=== PATIENT | female | born 1985 | race Caucasian/White ===

== ENCOUNTER 2021-08-15 17:40 | Emergency (ER) | payer OTHER, SELFPAY ==
--- NOTE | 2021-08-15 17:41 | ED.NECK ---
HPI - Neck Pain/Injury General Chief Complaint: Neck Pain/Injury Stated Complaint: Neck Pain Time Seen by Provider: 08/15/21 17:45 Source: patient and RN notes reviewed History of Present Illness HPI Narrative: Patient is a 35-year-old female who presents the urgent care with complaints of right sided neck pain. Patient states that she woke up with a stiff neck today and was unable to go to work due to the radiation down to the right shoulder. Patient states that she has been using ice, rest, movement and Tylenol without any resolution. Patient denies of any headache or changes in vision. Denies of any known trauma or injury to the neck. No other acute complaints. No acute distress noted. Patient aware of the plan of care. Some parts of this dictation were generated by voice recognition software and may contain typographical and/or grammatical inaccuracies. Related Data Home Medications Medication Instructions Recorded Confirmed amitriptyline 75 mg PO HS 08/15/21 08/15/21 levothyroxine 50 mcg PO DAILY 08/15/21 08/15/21 methylphenidate HCl 10 mg PO DAILY 08/15/21 08/15/21 pantoprazole [Protonix] 40 mg PO HS 08/15/21 08/15/21 Allergies Allergy/AdvReac Type Severity Reaction Status Date / Time No Known Allergies Allergy Verified 08/15/21 18:00 Review of Systems Review of Systems: CONSTITUTIONAL: Denies fever, chills, or sweats. EYES: Denies visual changes, redness, or discharge. ENT: Denies rhinorrhea, congestion, sore throat, or otalgia. CARDIOVASCULAR: Denies chest pain, palpitations, or edema. RESPIRATORY: Denies cough or dyspnea. GASTROINTESTINAL: Denies abdominal pain, nausea, vomiting, or diarrhea. GENITOURINARY: Denies dysuria or hematuria. SKIN: Denies rash or itching. MUSCULOSKELETAL: Reports of right-sided neck pain. Denies back pain, joint pain, or myalgia. NEUROLOGIC: Denies headache, numbness, or weakness. All other systems reviewed are negative, except as documented in HPI. PMFSH Comments At the time of my signature, I reviewed and agree with the nursing past medical, surgical, social, and family history. There is no relevant family history pertinent to the patient complaint. Exam Narrative: GENERAL: This is a well-nourished, well-developed patient, in no apparent distress. HEAD: normocephalic, atraumatic. EYES: PERRL. Sclera clear/white. Vision is grossly intact. EARS: External ears normal NOSE: External nose normal with no obvious nasal discharge, nares without redness, no rhinorrhea. THROAT: Mucous membranes moist NECK: Chin tuck, had left and flexion to the left within normal limits. Difficulty with right flexion. Mild right cervical tenderness CARDIOVASCULAR: Regular rate and rhythm without murmurs, gallops, or rubs. RESPIRATORY: Clear to auscultation. Breath sounds equal bilaterally. No wheezes, rales, or rhonchi. SKIN: warm, intact with no suspicious lesions or rash, good texture and turgor. NEURO: awake, alert, and oriented to person, place and time. There were no obvious focal neurologic abnormalities. EXTREMITIES: No clubbing, cyanosis, or edema. Course Vital Signs Vital signs: Vital Signs Temperature 98.1 F 08/15/21 17:50 Pulse Rate 87 08/15/21 17:50 Respiratory Rate 16 08/15/21 17:50 Blood Pressure 136/83 08/15/21 17:50 Pulse Oximetry 100 08/15/21 17:50 Temperature 98.1 F 08/15/21 17:50 Pulse Rate 87 08/15/21 17:50 Respiratory Rate 16 08/15/21 17:50 Blood Pressure 136/83 08/15/21 17:50 Pulse Oximetry 100 08/15/21 17:50 Reviewed MDM - Neck Pain/Injury MDM Narrative Medical decision making narrative: Advised the patient to complete the steroid regimen as prescribed. Continue using Tylenol as needed for pain. Use the muscle relaxer as needed prior to bedtime. The muscle relaxer will make you drowsy and therefore avoid operating heavy machinery or working while on the medication. May use the medication 3 times a day if you were going to be a
[2021-08-15 17:50] VITALS: BP 136/83; PULSE 87; RESP 16; TEMP 36.7; O2SAT 100
== END 2021-08-15 18:08 | disposition home or self-care (01) ==
PROVIDERS: Emergency Provider Nurse Practitioner Family; PCP Family Medicine
DX: S16.1XXA Strain of muscle, fascia and tendon at neck level, initial encounter (principal); X58.XXXA Exposure to other specified factors, initial encounter; Z98.84 Bariatric surgery status; K21.9 Gastro-esophageal reflux disease without esophagitis; E03.9 Hypothyroidism, unspecified; F41.9 Anxiety disorder, unspecified
CPT/HCPCS: 99203; G0463

== ENCOUNTER 2025-10-23 17:29 | Emergency (ER) | payer OTHER, SELFPAY ==
--- OUTSIDE RECORDS SUMMARY | 2025-10-23 17:35 | XMS_ITS | Clinical Summary ---
Author Organization [facility] [address] Address [address] [place] [address] Care Team Providers Care Quality Lead Name Role Phone Zen Pierce MD Unavailable [phone] Marc Zambrano MANAGER MANAGING Unavailable [phone] Suzanne Scott MD Primary Care Provider Viji Hopkins MD Unavailable [phone] Allergies Active Allergy Reactions Criticality Noted Date Comments Shellfish Diarrhea,Vomiting Low 01/31/2024 Medications multivit-min/iron/ folic acid/K (BARIATRIC MULTIVITAMINS ORAL) Take by mouth Active iron bis-gly/FA/C/B12/C a/succ (IRON-150 ORAL) Take by mouth Active pantoprazole DR (PROTONIX) 40 mg EC tabletIndications: Gastroesophageal reflux disease without esophagitis TAKE 1 TABLET BY MOUTH EVERY DAY IN THE MORNING 90 tablet 08/27/20 25 Active levothyroxine (SYNTHROID) 50 mcg tabletIndications: Acquired hypothyroidism TAKE 1 TABLET BY MOUTH EVERY DAY 90 tablet 1 09/09/20 25 Active viloxazine 100 mg capsule,extended release 24hrIndications:At tention-Deficit Hyperactivity Disorder Take 2 capsules by mouth daily for 15 days, THEN 4 capsules daily for 15 days. 180 capsule 10/06/20 25 026 Active valACYclovir (VALTREX) 500 mg tabletIndications: Herpesviral infection, unspecified Take 1 tablet (500 mg total) by mouth daily 40 tablet 10/20/20 25 Active methylphenidate HCl (RITALIN) 10 mg tabletIndications: Attention-Deficit Hyperactivity Disorder Take 1 tablet in the morning and 1/2 tablet in the afternoon 45 tablet 06/18/20 25 025 Discontin ued(Thera py completed ) valACYclovir (VALTREX) 500 mg tabletIndications: Herpesviral infection, unspecified TAKE 1 TABLET (500 MG TOTAL) BY MOUTH DAILY. 40 tablet 07/28/20 25 025 Discontin ued(Reord er) atomoxetine (STRATTERA) 40 mg capsuleIndications :Attention-Deficit Hyperactivity Disorder Take 1 capsule (40 mg total) by mouth daily for 5 days, THEN 2 capsules (80 mg total) daily for 25 days. 55 capsule 08/25/20 25 025 Discontin ued(Thera py completed ) atomoxetine (STRATTERA) 80 mg capsule Take 1 capsule (80 mg total) by mouth daily 90 capsule 09/20/20 025 Discontin ued(Patie nt Reported) Active Problems Problem Noted Date Diagnosed Date Heart palpitations 07/01/2025 Overview (10/18/2025): [facility] Mobile Cardiac Telemetry Event Monitor 09/2025 CONCLUSIONS: 1. Predominant rhythm is normal sinus rhythm with a minimum heart rate of 62 beats per minute in sinus and a maximum heart rate of 151 beats per minute also in sinus. Average heart rate of 91 beats per minute. Heart rate was controlled 73% of the time and was rapid 27% of the time. Total monitoring time of 4 days 7 hours 41 minutes. 2. Heart rate and rate variability is appropriate. 3. No prolonged pauses. 4. Rare PACs with only 99 PACs corresponding to less than 1% of total beats. 5. Rare PVCs with only 33 PVCs corresponding to less than 1% of total beats. 6. There were 7 patient activated events with 4 of them associated with rapid/fast heartbeat. All noted to be in sinus rhythm ranging in heart rate from 77-122 beats per minute. Two of the rapid/fast heartbeat episodes were associated with an isolated PAC and a supraventricular couplet. Assessment & Plan (10/17/2025 6:40 PM SILO WORKER): Heart palpitations with tachycardia have improved significantly after discontinuation of Ritalin and reduction of caffeine intake. Improved significantly since initial presentation. She suspects symptoms are to be related to menstrual cycle. - ordered event monitor for two weeks to assess for arrhythmias if symptoms persist which she has completed and returned but results are still pending - She is not concerned about non-dangerous arrhythmias but is interested in resuming Ritalin if cardiac evaluation is favorable. - Await results of the event monitor to determine the nature of the arrhythmias. - Will communicate event monitor results to her once available. - Will discuss potential use of medication to manage symptoms if arrhythmias are non-dangerous but bothersome. ECG 08/2025 Vent Rate: 95 bpm RR Interval: 631 msec WV Interval: 162 msec QRS Duration: 82 msec QT Interval: 317 msec QTC Interval: 369 msec P-R-T [place]: 38 - 26 - 18 degrees IMPRESSION: SINUS RHYTHM WITH MARKED SINUS ARRHYTHMIA POSSIBLE ANTERIOR MYOCARDIAL INFARCTION , PROBABLY OLD [30 ms Q WAVE IN V3/V4, OR R < 0.2 mV IN V4] BORDERLINE ECG Compared to prior EKG heart rate decreased Assessment & Plan (08/25/2025 12:23 PM CDT): Heart palpitations and tachycardia Heart palpitations have improved significantly after reducing Ritalin and caffeine intake. Symptoms are not completely resolved and occur intermittently, possibly related to hormonal changes. EKG showed sinus arrhythmia, which is normal and not concerning. No evidence of myocardial infarction despite EKG findings suggesting possible Q waves. Discussed the possibility of PVCs, which are common and not typically dangerous unless frequent. - Order event monitor for two weeks to assess for arrhythmias if symptoms persist. - Schedule event monitor setup in three weeks to allow trial of Strattera. - Send event monitor results directly to provider. ECG 08/2025 Vent Rate: 95 bpm RR Interval: 631 msec WV Interval: 162 msec QRS Duration: 82 msec QT Interval: 317 msec QTC Interval: 369 msec P-R-T [place]: 38 - 26 - 18 degrees IMPRESSION: SINUS RHYTHM WITH MARKED SINUS ARRHYTHMIA POSSIBLE ANTERIOR MYOCARDIAL INFARCTION , PROBABLY OLD [30 ms Q WAVE IN V3/V4, OR R < 0.2 mV IN V4] BORDERLINE ECG Compared to prior EKG heart rate decreased Orders: [facility] Mobile Cardiac Telemetry Event Monitor; Future Assessment & Plan (07/01/2025 11:43 PM CDT): Intermittent palpitations and elevated pulse for over a week, with significant symptoms on Saturday. Symptoms improved after stopping melatonin. Similar symptoms occurred after stopping Z-Quil. No current chest pain, but occasional tightness. Regular heart rate and rhythm on examination. Differential includes stimulant effects from Ritalin and caffeine. Symptoms were worse at night, possibly due to lingering effects of caffeine. - Discontinue Ritalin for two weeks to assess symptom improvement. - Avoid caffeine to evaluate its impact on symptoms. - Monitor heart rate and blood pressure at home. - If symptoms worsen, order labs, heart monitor, and EKG. - Reassess after two weeks to determine if symptoms persist or improve. Vitamin D deficiency 01/27/2025 Assessment & Plan (01/27/2025 6:00 AM CDT): - new diagnosis Vitamin D levels are low, likely due to limited sun exposure and dietary intake. Common in patients with bariatric surgery. Multivitamin includes vitamin D but adherence is inconsistent. - Encourage regular intake of bariatric multivitamin containing vitamin D - Consider additional vitamin D supplementation if levels do not improve - not consistent in taking her bariatric multivitamin supplement which she will restart taking it consistently Lab Results Component Value Date 25HYDROVITD 22 (L) 01/14/2025 25HYDROVITD 30 08/14/2023 25HYDROVITD 34 06/26/2022 Irritable bowel syndrome with diarrhea Chronic left shoulder pain 02/05/2024 Assessment & Plan (02/05/2024 5:16 PM CDT): - chronic, reports been ongoing for years - no recent injury or trauma - reports injury about 3.5 years ago - obtain XR of left shoulder, order placed Plantar fasciitis of left foot 02/05/2024 Assessment & Plan (02/05/2024 5:18 PM CDT): - new complaint, states ongoing for 3 months - she googled about it and concerned about broken heel bone vs plantar fascitis - symptom is consistent with plantar fascitis, no prior injury or recent trauma - has known morbid obesity - recommend exercises plantar fascitis, patient tinstruction provided - obtain XR of left foot, order placed Sinus tachycardia 01/31/2024 Sleep disorder 01/17/2024 Overview (08/25/2025): Established with sleep medicine Assessment & Plan (08/12/2024 10:12 AM CDT): - she was established with sleep medicine in 2021 - Dr. Leach for RLS which resolved with treatment of her iron deficiency, she was also seen for insomnia - she no longer has RLS at this time, most recent labs as shown below - in 2019, she was diagnosed with periodic sleep movement disorder - however she needed to have sleep study first before treatment of insomnia which she never did - she still has trouble with sleep initiation, has been taking antihihistamines without success - recommend reaching out to sleep medicine on last visit regarding this as she also complaints of fatigue and has known obesity --> has not been done but plans to reach out again Lab Results Component Value Date WBC 4.0 02/01/2024 HGB 12.4 02/01/2024 HCT 36.7 02/01/2024 MCV 86.8 02/01/2024 LABPLAT 185 02/01/2024 Lab Results Component Value Date IRON 63 12/23/2023 TIBC 305 12/23/2023 FERRITIN 18 12/23/2023 Assessment & Plan (08/06/2024 9:50 AM CDT): - she was established with sleep medicine in 2021 - Dr. Leach for RLS which resolved with treatment of her iron deficiency, she was also seen for insomnia - in 2019, she was diagnosed with periodic sleep movement disorder - however she needed to have sleep study first before treatment of insomnia which she never did - she still has trouble with sleep initiation, has been taking antihihistamines without success - recommend reaching out to sleep medicine regarding this as she also complaints of fatigue and has known obesity Assessment & Plan (01/17/2024 5:54 AM CDT): - she was established with sleep medicine in 2021 - Dr. Leach for RLS which resolved with treatment of her iron deficiency, she was also seen for insomnia - in 2019, she was diagnosed with periodic sleep movement disorder - however she needed to have sleep study first before treatment of insomnia which she never did - she still has trouble with sleep initiation, has been taking antihihistamines without success - recommend reaching out to sleep medicine regarding this as she also complaints of fatigue and has known obesity Hypertriglyceridemia without hypercholesterolemi a 12/24/2023 Assessment & Plan (01/25/2025 12:26 PM CDT): - chronic, improved/at goal - has known obesity Body mass index is 49.19 kg/m . - currently trying to lose weight - currently managed via lifestyle only - recommend fish oil supplements - The current medical regimen is effective; continue present plan and medications. Lab Results Component Value Date TRIG 132 01/14/2025 TRIG 233 (H) 12/23/2023 TRIG 173 (H) 07/06/2021 Assessment & Plan (02/05/2024 5:15 PM CDT): - chronic, worse - has known obesity Body mass index is 48.02 kg/m . - currently trying to lose weight - currently managed via lifestyle only - recommend fish oil supplements - will continie to monitor Lab Results Component Value Date TRIG 233 (H) 12/23/2023 TRIG 173 (H) 07/06/2021 Encounter for evaluation regarding contraception options 10/10/2023 Assessment & Plan (10/29/2023 7:28 PM SILO WORKER): The patient is going to start on oral contraceptives today. Risks, benefits, and alternatives were reviewed including nausea, hypertension, and risk of DVT. Patient was asked to return to the office in 3 months for blood pressure check. We discussed that oral contraceptives will keep her from getting when taken correctly. Condom use was encouraged at all times, especially in the 1st pack. She can start her pills today but they may not be enough to keep her from having they next cycle, but the cycles should regulate. If she wants, she can wait and start with the first day of her next cycle. We discussed that the patient should take 1 pill a day. If she forgets to take her pills she should take it as soon as she remembers. We discussed that antibiotics will decrease the efficacy of oral contraceptives. If she takes antibiotics she needs to use condoms until she starts the new pack. It may take three cycles for the cycles to be noticeably different. The patient was encouraged to call with any questions. I will double check that ocp are the best option for her after her bariatric surgery as she prefers not to use patches or nuvaring. Well woman exam 10/10/2023 Overview (10/10/2023): Do you want to be in the next year?no Lab: Pap:following abnl pap currently Labs with pcp Litzy: Colonoscopy:2021 BMD: Gardasil:01/04 Assessment & Plan (10/10/2023 1:43 PM SILO WORKER): Pap done. RTO 12m. I will send the results to the portal. If she has not heard in a week, to call the office. Preventative health care 08/16/2023 Assessment & Plan (01/27/2025 6:01 AM CDT): - new/acute condition or chronic conditions that are worse: vitamin D deficiency, low iron, anxiety/depression, ADHD - Mental health: not at goal, see other a/p section - Dental health: Up to date with regular dental care and cleaning. Discussed importance of regular tooth brushing, flossing, and dental visits. - Nutrition: Stressed importance of moderation in sodium/caffeine intake, saturated fat and cholesterol, caloric balance, sufficient intake of fresh fruits, vegetables - Exercise: Stressed the importance of regular exercise as tolerate, walks everyday - Immunizations: Age and sex appropriate immunizations reviewed and offered - Cervical Cancer screening: up to date, follows with OBGYN - Breast Cancer screening: n/a - Colon cancer screening: n/a - Lung cancer screening: n/a - Bone desnity/osteoporosis screening: n/a - control: none Assessment & Plan (08/16/2023 10:36 AM CDT): - Mental health: stable - Dental health: Up to date with regular dental care and cleaning. Discussed importance of regular tooth brushing, flossing, and dental visits. - Nutrition: Stressed importance of moderation in sodium/caffeine intake, saturated fat and cholesterol, caloric balance, sufficient intake of fresh fruits, vegetables - Exercise: Stressed the importance of regular exercise as tolerate, walks everyday - Immunizations: Age and sex appropriate immunizations reviewed and offered - Cervical Cancer screening: up to date, follows with OBGYN - Breast Cancer screening: n/a - Colon cancer screening: n/a - Lung cancer screening: n/a - Bone desnity/osteoporosis screening: n/a - control: none Excessive sweating 05/15/2023 Assessment & Plan (08/16/2023 10:38 AM CDT): - improving, started after she was placed on Citalopram by her OBGYN in period - she was told to be on it for at least 6 months, and now has started weaning off of it and is down to 10 mg daily for last 1-2 weeks from 20 mg daily, plans to discontinue it after she has been on the 10 mg for few weeks and if still doing well Assessment & Plan (05/15/2023 1:34 PM CDT): - started after she was placed on Citalopram by her OBGYN in period - she was told to be on it for at least 6 months, and has been on it for about 3-4 months now - plans to stay on it for 6 months duration and If symptoms continue will taper off and may switch her to another medication if needed Bariatric surgery status 05/14/2023 Overview (02/05/2024): S/p Gastric sleeve surgery 2016 Assessment & Plan (05/24/2025 5:22 PM CDT): - chronic, stable - had gastric sleeve surgery in 2016, was around 280 and was down to 200 lbs after surgery - has hx of iron deficiency, recurrent GERD - current weight as sown - discussed need for monitoring for nutritional deficiencies - need to take bariatric multivitamin supplement - has known iron deficiency She underwent gastric sleeve surgery and is experiencing significant GERD symptoms. Considering conversion to a gastric bypass as a potential solution. Discussed the possibility of further diagnostic testing and the need to consult with a surgeon to explore surgical options. Emphasized that while conversion might help, it is not guaranteed to resolve symptoms. Discussed the need for endoscopy and barium swallow to assess for hiatal hernia and other anatomical issues before considering surgery. - Consult with a bariatric surgeon regarding conversion to gastric bypass. - Consider endoscopy and barium swallow to assess for hiatal hernia and other anatomical issues. Wt Readings from Last 3 Encounters: 05/24/25 123.6 kg (272 lb 8 oz) 05/04/25 122.5 kg (270 lb) 04/26/25 122.5 kg (270 lb) Lab Results Component Value Date VITB12 619 01/14/2025 Lab Results Component Value Date FOLATE 5.7 01/14/2025 Lab Results Component Value Date IRON 47 01/14/2025 TIBC 337 01/14/2025 FERRITIN 37 01/14/2025 Assessment & Plan (01/27/2025 5:59 AM CDT): - chronic, stable - had gastric sleeve surgery in 2015, was around 280 and was down to 200 lbs after surgery - has hx of iron deficiency, recurrent GERD - current weight as sown - discussed need for monitoring for nutritional deficiencies - not consistent in taking her bariatric multivitamin supplement which she will restart taking it consistently - has known iron deficiency - will continue monitoring for nutritional deficiencies Wt Readings from Last 3 Encounters: 01/25/25 125.9 kg (277 lb 9.6 oz) 12/08/24 123.8 kg (273 lb) 11/25/24 123.9 kg (273 lb 1.6 oz) Lab Results Component Value Date VITB12 619 01/14/2025 Lab Results Component Value Date FOLATE 5.7 01/14/2025 Lab Results Component Value Date IRON 47 01/14/2025 TIBC 337 01/14/2025 FERRITIN 37 01/14/2025 Assessment & Plan (08/12/2024 10:26 AM CDT): - chronic, stable - had gastric sleeve surgery in 2015, was around 280 and was down to 200 lbs after surgery - current weight as sown Wt Readings from Last 3 Encounters: 08/12/24 119.3 kg (263 lb) 08/03/24 119.7 kg (264 lb) 07/22/24 119.8 kg (264 lb 1.6 oz) - discussed need for monitoring for nutritional deficiencies - currently on bariatric multivitamin supplement - has known iron deficiency - will continue monitoring for nutritional deficiencies Lab Results Component Value Date VITB12 852 08/14/2023 Lab Results Component Value Date FOLATE 13.7 08/14/2023 Lab Results Component Value Date IRON 63 12/23/2023 TIBC 305 12/23/2023 FERRITIN 18 12/23/2023 Assessment & Plan (12/24/2023 11:21 AM SILO WORKER): - chronic, stable - had gastric sleeve surgery in 2015, was around 280 and was down to 200 lbs after surgery - current weight as sown Wt Readings from Last 3 Encounters: 12/24/23 122.9 kg (271 lb) 10/10/23 123.8 kg (273 lb) 09/16/23 122.5 kg (270 lb) - discussed need for monitoring for nutritional deficiencies - currently on bariatric multivitamin supplement - has known iron deficiency - will continue monitoring for nutritional deficiencies Lab Results Component Value Date VITB12 852 08/14/2023 Lab Results Component Value Date FOLATE 13.7 08/14/2023 Lab Results Component Value Date IRON 63 12/23/2023 TIBC 305 12/23/2023 FERRITIN 18 12/23/2023 Assessment & Plan (08/16/2023 10:30 AM CDT): - chronic, stable - had gastric sleeve surgery in 2015, was around 280 and was down to 200 lbs after surgery - current weight as sown Wt Readings from Last 3 Encounters: 08/16/23 121.1 kg (267 lb) 05/14/23 120.2 kg (265 lb) 04/17/23 119.3 kg (263 lb) - discussed need for monitoring for nutritional deficiencies - currently on bariatric multivitamin supplement - has known iron deficiency - will continue monitoring for nutritional deficiencies Assessment & Plan (05/14/2023 2:10 PM CDT): - chronic, stable - had gastric sleeve surgery in 2015, was around 280 and was down to 200 lbs after surgery - discussed need for monitoring for nutritional deficiencies - has known iron deficiency Encounter for preconception consultation 023 Assessment & Plan (03/27/2023 7:12 AM CDT): The pt is asking about the risk of additional pregnancies. We discussed that a lot of her problems during this stemmed from the unknown. Now that she knows what a can be like, if she chooses to get again, I think she will do better from a mental stand point. She was encouraged to get to a more healthy weight before another as the physical complications she had with this were related to her elevated BMI and it puts her at increased risk with future pregnancies. Increased risk with increasing age touched on. Two years between pregnancies discussed as optimal. Her carpel tunnel is bothering her again. She was encouraged to address prior to another . History of abnormal cervical Pap smear Assessment & Plan (10/10/2023 1:41 PM SILO WORKER): Repeated today Generalized anxiety disorder 10/16/2022 Assessment & Plan (08/25/2025 12:23 PM CDT): - chronic condition, persistent - comorbid condition of ADHD - in past successfully weaned herself off of citalopram 10 mg daily (she had complaint of excessive sweating) - she has tried Buspar in past but made her feel drunk - she used to be on Zoloft for 10-12 years in the past - Previous use of Celexa was effective but caused excessive sweating. - prescribed Lexapro 01/2025 but requested to taper off and discontinue Lexapro 03/2025 and has been off of it Assessment & Plan (01/27/2025 6:04 AM CDT): - chronic condition, worse - in past successfully weaned herself off of citalopram 10 mg daily (she had complaint of excessive sweating) - she has tried Buspar in past but made her feel drunk - she used to be on Zoloft for 10-12 years in the past Reports situational depression and anxiety related to work environment and current events. Previous use of Celexa was effective but caused excessive sweating. Interested in trying a similar medication without this side effect. Lexapro (escitalopram) is recommended as it is similar to Celexa but may have a different side effect profile. - Prescribe Lexapro (escitalopram) as an alternative to Celexa - Discuss potential side effects of Lexapro, including initial adjustment period - Advise monitoring symptoms and follow up if side effects are intolerable Assessment & Plan (04/13/2024 8:38 AM CDT): - chronic condition, stable - has successfully weaned herself off of citalopram 10 mg daily (she had complaint of excessive sweating) - she has tried Buspar in past but made her feel drunk - she used to be on Zoloft for 10-12 years in the past - currently coughing without any medication but willing to try different medication or get back on citalopram if anxiety gets worse - continue current management Assessment & Plan (02/05/2024 5:15 PM CDT): - chronic condition, stable - reports better control - currently taking 1/2 tablet of the Citalopram 10 mg (she had complaint of excessive sweating tried to discontinue medication but felt worse is not back to taking half a tablet of the citalopram 10 mg daily - she has tried Buspar in past but made her feel drunk - she used to be on Zoloft for 10-12 years in the past - continue current therapy Assessment & Plan (08/16/2023 10:42 AM CDT): - chronic condition, stable - reports better control - currently on Citalopram 10 mg daily which she recently started tapering down from 20 mg daily and plans to discontinue afterwards (she had been having heat intolerance) - she has tried Buspar in past but made her feel drunk - she used to be on Zoloft for 10-12 years in the past - continue current therapy, and will change medication if symptoms of excessive sweating continues Assessment & Plan (05/15/2023 1:37 PM CDT): - chronic condition, stable - reports better control - currently on Citalopram 20 mg daily but has been having excessive sweating - she has tried Buspar in past but made her feel drunk - she used to be on Zoloft for 10-12 years in the past - continue current therapy, and will change medication if symptoms of excessive sweating continues Assessment & Plan (04/21/2023 5:48 PM CDT): - chronic condition, stable - reports better control - currently on Citalopram 20 mg daily - continue current therapy Assessment & Plan (03/27/2023 7:06 AM CDT): Mood is currently good History of colonic polyps 04/30/2022 Assessment & Plan (05/24/2025 12:32 PM CDT): - Hx of large polyp on colonoscopy on 04/2022 - A 20 mm polyp was found in the distal descending colon. The polyp was sessile. The polyp was removed with a hot snare. - repeat Colonoscopy on 04/2025 Colonoscopy 04/28 Indications: Last colonoscopy: April 2022, Generalized abdominal pain, Change in bowel habits Referring MD: Suzanne Scott M.D. Providers: Thomas Dennison M.D. Impression: - Overall unremarkable colonoscopy. Random colon biopsy performed. - Diverticulosis in the sigmoid colon. - Internal hemorrhoids. Recommendation: - Await pathology results. - Repeat colonoscopy in 5 years for surveillance. - No pathology noted to explain the patient's symptoms which could well be functional or neuropathic. - If heartburn symptoms are predominant then consider 24 hour pH monitoring on PPI daily the confirm the role of acid reflux. Assessment & Plan (04/30/2022 2:45 PM CDT): - Most recent colonoscopy on 04/2022 - A 20 mm polyp was found in the distal descending colon. The polyp was sessile. The polyp was removed with a hot snare. - repeat colonoscopy in 3 years Rotator cuff syndrome of left shoulder Assessment & Plan (04/30/2022 3:22 PM CDT): - new diagnosis, not at goal - states ongoing since September 2020 - no specific trauma or accident - evaluated in office - recommend Physical therapy, referral placed History of iron deficiency anemia 01/30/2022 Assessment & Plan (01/27/2025 5:58 AM CDT): - chronic, improved and well controlled - diagnosed in 01/2022 - s/p iron infusion x3 in the past 2021 with good improvement - no more leg cramps, RLS symptoms she used to have - has history of gastric sleeve surgery - currently on iron supplementation - EC 324 MG Tablet 1-2 daily with some inconsistency - most recent labs as shown below The current medical regimen is effective; continue present plan and medications. Lab Results Component Value Date IRON 47 01/14/2025 TIBC 337 01/14/2025 FERRITIN 37 01/14/2025 Lab Results Component Value Date HGB 12.7 01/14/2025 Assessment & Plan (08/12/2024 10:26 AM CDT): - chronic, improved and well controlled - diagnosed in 01/2022 - s/p iron infusion x3 in the past 2021 with good improvement - no more leg cramps, RLS symptoms she used to have - has history of gastric sleeve surgery - currently on iron supplementation - EC 324 MG Tablet 1-2 daily with some inconsistency - most recent labs as shown below - continue current management Lab Results Component Value Date IRON 63 12/23/2023 TIBC 305 12/23/2023 FERRITIN 18 12/23/2023 Lab Results Component Value Date HGB 12.4 02/01/2024 Assessment & Plan (08/06/2024 9:50 AM CDT): - chronic, improved and well controlled - diagnosed in 01/2022 - s/p iron infusion x3 in the past 2021 with good improvement - no more leg cramps - has history of gastric sleeve surgery - currently on iron supplementation - EC 324 MG Tablet Take 1 tablet by mouth 2 --> trying to be consistent with medication but keeps forgetting - most recent labs as shown below - continue current management Lab Results Component Value Date IRON 63 12/23/2023 TIBC 305 12/23/2023 FERRITIN 18 12/23/2023 Lab Results Component Value Date HGB 12.4 02/01/2024 Assessment & Plan (04/13/2024 8:40 AM CDT): - chronic, improved and well controlled - diagnosed in 01/2022 - s/p iron infusion x3 in the past 2021 with good improvement - no more leg cramps - has history of gastric sleeve surgery - currently on iron supplementation - EC 324 MG Tablet Take 1 tablet by mouth 2 --> trying to be consistent with medication but keeps forgetting - most recent labs as shown below - continue current management Lab Results Component Value Date IRON 63 12/23/2023 TIBC 305 12/23/2023 FERRITIN 18 12/23/2023 Lab Results Component Value Date HGB 12.4 02/01/2024 Assessment & Plan (01/17/2024 5:45 AM CDT): - chronic, improved and well controlled - diagnosed in 01/2022 - was on iron supplementation twice daily over the past 3 months without success - completed iron infusion x3 in with good improvement - no more leg cramps - has history of gastric sleeve surgery - currently on iron supplementation - EC 324 MG Tablet Take 1 tablet by mouth 2 - most recent labs as shown below - continue current management Lab Results Component Value Date IRON 63 12/23/2023 TIBC 305 12/23/2023 FERRITIN 18 12/23/2023 Lab Results Component Value Date HGB 13.2 12/23/2023 Assessment & Plan (08/16/2023 10:12 AM CDT): - chronic, improved and at goal - diagnosed in 01/2022, not well controlled - was on iron supplementation twice daily over the past 3 months without success - completed iron infusion x3 in early June with good improvement - no more leg cramps - has history of gastric sleeve surgery - most recent labs as shown below - continue current management, recheck labs on next visit Lab Results Component Value Date IRON 59 08/14/2023 TIBC 285 08/14/2023 FERRITIN 24 05/10/2023 Lab Results Component Value Date HGB 11.8 (L) 05/10/2023 Assessment & Plan (05/14/2023 2:00 PM CDT): - chronic, improved and at goal - diagnosed in 01/2022, not well controlled - was on iron supplementation twice daily over the past 3 months without success - completed iron infusion x3 in early June with good improvement - no more leg cramps - has history of gastric sleeve surgery - most recent labs as shown below - continue current management, recheck labs on next visit Lab Results Component Value Date IRON 33 (L) 05/10/2023 TIBC 308 05/10/2023 FERRITIN 24 05/10/2023 Lab Results Component Value Date HGB 11.8 (L) 05/10/2023 Assessment & Plan (07/03/2022 12:49 PM CDT): - chronic, improved and at goal - diagnosed in 01/2022, not well controlled - was on iron supplementation twice daily over the past 3 months without success - completed iron infusion x3 in early June with good improvement - no more leg cramps - has history of gastric sleeve surgery - most recent labs as shown below - continue current management, recheck labs on next visit Lab Results Component Value Date IRON 68 06/26/2022 TIBC 280 06/26/2022 FERRITIN 300 (H) 06/26/2022 Lab Results Component Value Date HGB 11.5 (L) 06/26/2022 Assessment & Plan (06/26/2022 10:53 AM CDT): S/p iron transfusion x 3 06/202206/26/22- to cbc and iron studies. Assessment & Plan (04/30/2022 3:21 PM CDT): - diagnosed in 01/2022, not well controlled - has been on iron supplementation twice daily over the past 3 months, some lack of adherence to plan with forgetfulness - she would like to proceed with iron infusion - has history of gastric sleeve surgery - most recent labs as shown below - recheck labs, order placed Lab Results Component Value Date IRON 19 (L) 01/30/2022 TIBC 408 (H) 01/30/2022 Lab Results Component Value Date HGB 10.1 (L) 01/30/2022 Assessment & Plan (01/30/2022 4:40 PM CDT): History of bariatric surgery. She has a history of anemia, labs ordered, will follow. History of restless legs syndrome 01/30/2022 Assessment & Plan (01/17/2024 5:47 AM CDT): - chronic, big improvement - established with Dr. Leach (sleep medicine) in the past - she has Periodic limb movement disorder, Restless legs syndrome - not on any medications for sleep disorder at this time - states she had iron infusion and has resolved her symptoms of RLS Lab Results Component Value Date IRON 63 12/23/2023 TIBC 305 12/23/2023 FERRITIN 18 12/23/2023 Lab Results Component Value Date WBC 8.5 12/23/2023 HGB 13.2 12/23/2023 HCT 38.9 12/23/2023 MCV 86.4 12/23/2023 LABPLAT 316 12/23/2023 Assessment & Plan (05/14/2023 2:03 PM CDT): - chronic, big improvement - established with Dr. Leach (sleep medicine) in the past - she has Periodic limb movement disorder, Restless legs syndrome - not on any medications for sleep disorder at this time - states she had iron infusion and has resolved her symptoms Lab Results Component Value Date IRON 33 (L) 05/10/2023 TIBC 308 05/10/2023 FERRITIN 24 05/10/2023 Lab Results Component Value Date WBC 9.4 05/10/2023 HGB 11.8 (L) 05/10/2023 HCT 35.9 05/10/2023 MCV 85.5 05/10/2023 LABPLAT 368 05/10/2023 Assessment & Plan (04/21/2023 5:49 PM CDT): - chronic, big improvement - established with Dr. Leach (sleep medicine) in the past - she has Periodic limb movement disorder, Restless legs syndrome - not on any medications for sleep disorder at this time - states she had iron infusion and has resolved her symptoms Lab Results Component Value Date IRON 65 09/25/2022 TIBC 275 09/25/2022 FERRITIN 64 09/25/2022 Lab Results Component Value Date WBC 13.8 (H) 02/07/2023 HGB 12.2 02/07/2023 HCT 37.0 02/07/2023 MCV 82.2 02/07/2023 LABPLAT 422 (H) 02/07/2023 Assessment & Plan (04/30/2022 2:49 PM CDT): - chronic, not at goal - established with Dr. Leach (sleep medicine) - she has Periodic limb movement disorder, Restless legs syndrome - not on any medications for sleep disorder Assessment & Plan (01/30/2022 4:41 PM CDT): Patient complains of restless legs and will like to be evaluated. Referred to Sleep Medicine/neurologist for further evaluation and management. HPV in female 09/21/2021 Overview (01/16/2024): Normal pap positive HPV- She had a ckc in 2014. Wants to wait for colpo until after 3m of pills to see if it will help with the pain. 09/04/21 03/08/22- colpo done. ECC-negative 12/2022- negative pap with HR HPV 10/2023- negative pap negative HPV Assessment & Plan (01/16/2024 11:33 AM CDT): Will plan to repeat pap in OCT 2024 Assessment & Plan (10/29/2023 7:26 PM SILO WORKER): Pap repeated today Assessment & Plan (03/12/2023 2:43 PM CDT): Pap done Assessment & Plan (06/26/2022 3:28 PM CDT): Pap due in 03/2023 S/p ckc Will need cervical length at her next visit. Assessment & Plan (04/05/2022 10:55 AM CDT): Options discussed She wants to repeat in one year Will move her wwe appt. Assessment & Plan (03/08/2022 3:12 PM CDT): colpo done with ECC rto 4 weeks for results. She was able to tolerate the exam much better than the first one . Assessment & Plan (02/06/2022 4:19 PM CDT): Pap repeated today She wants to go ahead and schedule for colpo If negative, will plan to repeat in 6m. Assessment & Plan (09/21/2021 5:23 AM SILO WORKER): Normal pap positive HPV- She had a ckc in 2014. Wants to wait for colpo until after 3m of pills to see if it will help with the pain. Dyspepsia 08/29/2021 Morbid obesity with BMI of 45.0-49.9, adult 08/05 Overview (10/06/2025): S/p gastric sleeve surgery 2016 Assessment & Plan (10/17/2025 6:40 PM SILO WORKER): Wt Readings from Last 3 Encounters: 10/06/25 124.2 kg (273 lb 12.8 oz) 08/25/25 123 kg (271 lb 1.6 oz) 06/30/25 122.8 kg (270 lb 11.2 oz) Body mass index is 48.5 kg/m . - chronic condition, not at goal, persistent, small weight gain noted - s/p sleeve surgert in 2015 , highest weight was about 280 and then lost and got low to about 201, current weight as noted above - BMI Follow-up includes: nutrition counseling, exercise counseling - co-morbidities - hypothyroidism Assessment & Plan (08/25/2025 12:23 PM CDT): Wt Readings from Last 3 Encounters: 08/25/25 123 kg (271 lb 1.6 oz) 06/30/25 122.8 kg (270 lb 11.2 oz) 05/24/25 123.6 kg (272 lb 8 oz) Body mass index is 48.02 kg/m . - chronic condition, not at goal, persistent - s/p sleeve surgert in 2015 , highest weight was about 280 and then lost and got low to about 201, current weight as noted above - BMI Follow-up includes: nutrition counseling, exercise counseling - co-morbidities - hypothyroidism Assessment & Plan (01/27/2025 5:58 AM CDT): Wt Readings from Last 3 Encounters: 01/25/25 125.9 kg (277 lb 9.6 oz) 12/08/24 123.8 kg (273 lb) 11/25/24 123.9 kg (273 lb 1.6 oz) Body mass index is 49.19 kg/m . - chronic condition, not at goal, small weight gain noted - s/p sleeve surgert in 2015 , highest weight was about 280 and then lost and got low to about 201, current weight as noted above - BMI Follow-up includes: nutrition counseling, exercise counseling - co-morbidities - hypothyroidism Assessment & Plan (08/12/2024 10:17 AM CDT): Wt Readings from Last 3 Encounters: 08/12/24 119.3 kg (263 lb) 08/03/24 119.7 kg (264 lb) 07/22/24 119.8 kg (264 lb 1.6 oz) Body mass index is 47.31 kg/m . - chronic condition, not at goal, small weight loss noted - s/p sleeve surgert in 2015 , highest weight was about 280 and then lost and got low to about 201, current weight as noted above - BMI Follow-up includes: nutrition counseling, exercise counseling - co-morbidities - hypothyroidism Assessment & Plan (01/17/2024 5:44 AM CDT): Wt Readings from Last 3 Encounters: 01/16/24 121.8 kg (268 lb 9.6 oz) 01/07/24 121.5 kg (267 lb 14.4 oz) 12/24/23 122.9 kg (271 lb) Body mass index is 47.47 kg/m . - chronic condition, not at goal - s/p sleeve surgert in 2015 , highest weight was about 280 and then lost and got low to about 201, current weight as noted above - BMI Follow-up includes: nutrition counseling, exercise counseling - co-morbidities - hypothyroidism Assessment & Plan (02/05/2024 5:15 PM CDT): Wt Readings from Last 3 Encounters: 02/20/24 122.9 kg (271 lb) 10/10/23 123.8 kg (273 lb) 09/16/23 122.5 kg (270 lb) Body mass index is 48.02 kg/m . - chronic condition, not at goal - s/p sleeve surgery in 2015 , highest weight was about 280 and then lost and got low to about 201, current weight as noted above - BMI Follow-up includes: nutrition counseling, exercise counseling - co-morbidities - hypertriglyceridemia Assessment & Plan (09/16/2023 2:14 PM SILO WORKER): Wt Readings from Last 3 Encounters: 09/16/23 122.5 kg (270 lb) 08/16/23 121.1 kg (267 lb) 05/14/23 120.2 kg (265 lb) Body mass index is 47.83 kg/m . - chronic condition, not at goal --> worse, with small weight gain - s/p sleeve surgert in 2015 , highest weight was about 280 and then lost and got low to about 201, current weight as noted above - BMI Follow-up includes: nutrition counseling, exercise counseling Assessment & Plan (08/16/2023 10:41 AM CDT): Wt Readings from Last 3 Encounters: 08/16/23 121.1 kg (267 lb) 05/14/23 120.2 kg (265 lb) 04/17/23 119.3 kg (263 lb) Body mass index is 47.3 kg/m . - chronic condition, not at goal --> worse, with small weight gain - s/p sleeve surgert in 2015 , highest weight was about 280 and then lost and got low to about 201, current weight as noted above - BMI Follow-up includes: nutrition counseling, exercise counseling Assessment & Plan (05/15/2023 1:33 PM CDT): Wt Readings from Last 3 Encounters: 05/14/23 120.2 kg (265 lb) 04/17/23 119.3 kg (263 lb) 04/11/23 119.3 kg (263 lb) Body mass index is 46.94 kg/m . - chronic condition, not at goal - s/p sleeve surgert in 2015 , highest weight was about 280 and then lost and got low to about 201, current weight as noted above - BMI Follow-up includes: nutrition counseling, exercise counseling Assessment & Plan (04/11/2023 1:37 PM CDT): Wt Readings from Last 3 Encounters: 04/11/23 119.3 kg (263 lb) 03/12/23 119.7 kg (264 lb) 02/14/23 122 kg (269 lb) Body mass index is 46.59 kg/m . - chronic condition, not at goal - s/p sleeve surgert in 2015 , highest weight was about 280 and then lost and got low to about 201, current weight as noted above - BMI Follow-up includes: nutrition counseling, exercise counseling Assessment & Plan (03/27/2023 7:07 AM CDT): She is down to her prepregnancy weight and was encouraged to continue to work on getting to a healthy weight. Assessment & Plan (06/26/2022 3:28 PM CDT): We discussed that I recommend between 10-15 pounds of weight gain during the Any more will increase the chance that she will need c/s, have complications of c/s, pih and DM. Exercise was encouraged She and her partner voice understanding Will need extra usg and nst in the third trimester Assessment & Plan (04/30/2022 3:28 PM CDT): Wt Readings from Last 3 Encounters: 04/30/22 122.1 kg (269 lb 1.6 oz) 04/05/22 121 kg (266 lb 12.8 oz) 03/17/22 120.2 kg (265 lb) Body mass index is 49.21 kg/m . - chronic condition, not at goal - s/p sleeve surgert in 2015 , highest weight was about 280 and then lost and got low to about 201, current weight as noted above - BMI Follow-up includes: nutrition counseling, exercise counseling Family history of ovarian cancer 08/09/2021 Overview (07/11/2022): 08/2021 Pt has a vus - SMARCA4 and VHL Assessment & Plan (10/29/2023 7:26 PM SILO WORKER): We discussed serial ultrasounds in the future to attempts early detection Assessment & Plan (06/26/2022 3:26 PM CDT): Review her updated family history at her next visit Assessment & Plan (02/06/2022 4:19 PM CDT): Family history updated. Assessment & Plan (09/21/2021 5:21 AM SILO WORKER): Results reviewed She will call genetic counselor Will review recommendations when she returns Assessment & Plan (08/09/2021 4:07 PM CDT): She qualifies for genetic testing. Will arrange. RTO 6 weeks for the results. The limitations and implications of the test reviewed. She voices understanding and would like to proceed. She was given the [employer] handout. Pricing was discussed. rto 6 weeks. Irregular menses 08/09/2021 Assessment & Plan (01/16/2024 11:31 AM CDT): Doing well on the patch Will continue on. She is only in the second month First period was light Her cramping through out the month is better. Assessment & Plan (10/29/2023 7:25 PM SILO WORKER): Currently monthly, but not q 28 days. If we can start her on ocp, hopefully the cycles will become more regular Assessment & Plan (02/06/2022 4:20 PM CDT): Better after ocp. She is off and will follow. Pain is better too Assessment & Plan (09/21/2021 5:17 AM SILO WORKER): Better with ocp. Will continue for 3m rto after Assessment & Plan (08/09/2021 4:12 PM CDT): To ocn taper. To usg. May need emb Gastroesophageal reflux disease without esophagi tis 07/06/2021 Overview (01/27/2025): Following with GI Assessment & Plan (05/24/2025 5:25 PM CDT): - chronic, not at goal with persistent symptoms - has hx of gastric sleeve but even before that reports hx of GERD - She reports significant discomfort from acid reflux, requiring her to lie down and take Tums at least once a week. Currently on pantoprazole but is considering surgical options due to the severity of her symptoms. - hx of EGD with findings as shown below - currently on Pantoprazole 40 mg daily from GI - She was advised to start taking famotidine nightly per Gastroenterology --> start Famotidine 40 mg nightly and take pantoprazole 40 mg in am, can be done after breakfast 2 hrs later - She is considering 24 hour pH monitoring to assess as documented in the endoscopy note from Gastroenterology provider - has tried Sucrafate in past - has been told other option is to convert from gastric sleeve to gastric bypass - has known Obesity, recommend continued weight management 04/2022 EGD Findings: The examined duodenum was normal. Diffuse mildly erythematous mucosa without bleeding was found in the stomach likely nonspecific.. Biopsies were taken with a cold forceps for histology. Surgical changes from previous sleeve surgery can be appreciated. Retroflexion stomach was otherwise unremarkable. The gastroesophageal junction was normal at 38 cm. The examined esophagus was normal. Biopsies were taken with a cold forceps for histology. Assessment & Plan (01/27/2025 6:02 AM CDT): - chronic, not at goal with persistent symptoms - has hx of gastric sleeve but even before that reports hx of GERD - she just had EGD with finding as shown below - currently on Pantoprazole 40 mg daily from GI and recetly got prescribed Sucrafate - has been told other option is to convert from gastric sleeve to gastric bypass - continue with current management, continue with GI follow up - has known Obesity, recommend continued weight management 04/2022 EGD Findings: The examined duodenum was normal. Diffuse mildly erythematous mucosa without bleeding was found in the stomach likely nonspecific.. Biopsies were taken with a cold forceps for histology. Surgical changes from previous sleeve surgery can be appreciated. Retroflexion stomach was otherwise unremarkable. The gastroesophageal junction was normal at 38 cm. The examined esophagus was normal. Biopsies were taken with a cold forceps for histology. Assessment & Plan (01/17/2024 5:55 AM CDT): - chronic, controlled - has hx of gastric sleeve but even before that reports hx of GERD - she just had EGD with finding as shown below - currently on Pantoprazole 40 mg daily from GI - provided 30 day refill until her mail order prescription gets to her - continue with current management, continue with GI follow up - has known Obesity, recommend weight loss 04/2022 EGD Findings: The examined duodenum was normal. Diffuse mildly erythematous mucosa without bleeding was found in the stomach likely nonspecific.. Biopsies were taken with a cold forceps for histology. Surgical changes from previous sleeve surgery can be appreciated. Retroflexion stomach was otherwise unremarkable. The gastroesophageal junction was normal at 38 cm. The examined esophagus was normal. Biopsies were taken with a cold forceps for histology. Assessment & Plan (12/24/2023 11:22 AM SILO WORKER): - chronic, controlled - has hx of gastric sleeve but even before that reports hx of GERD - she just had EGD with finding as shown below - currently on Pantoprazole 40 mg daily - continue with current management, continue with GI follow up - has known Obesity, recommend weight loss 04/2022 EGD Findings: The examined duodenum was normal. Diffuse mildly erythematous mucosa without bleeding was found in the stomach likely nonspecific.. Biopsies were taken with a cold forceps for histology. Surgical changes from previous sleeve surgery can be appreciated. Retroflexion stomach was otherwise unremarkable. The gastroesophageal junction was normal at 38 cm. The examined esophagus was normal. Biopsies were taken with a cold forceps for histology. Assessment & Plan (08/16/2023 10:29 AM CDT): - chronic, controlled - has hx of gastric sleeve but even before that reports hx of GERD - she just had EGD with finding as shown below - currently on Pantoprazole 40 mg daily - continue with current management, continue with GI follow up 04/2022 EGD Findings: The examined duodenum was normal. Diffuse mildly erythematous mucosa without bleeding was found in the stomach likely nonspecific.. Biopsies were taken with a cold forceps for histology. Surgical changes from previous sleeve surgery can be appreciated. Retroflexion stomach was otherwise unremarkable. The gastroesophageal junction was normal at 38 cm. The examined esophagus was normal. Biopsies were taken with a cold forceps for histology. Assessment & Plan (04/30/2022 2:44 PM CDT): - chronic, not well controlled - she just had EGD with finding as shown below - currently on Pantoprazole 40 mg daily - continue with GI follow up 04/2022 EGD Findings: The examined duodenum was normal. Diffuse mildly erythematous mucosa without bleeding was found in the stomach likely nonspecific.. Biopsies were taken with a cold forceps for histology. Surgical changes from previous sleeve surgery can be appreciated. Retroflexion stomach was otherwise unremarkable. The gastroesophageal junction was normal at 38 cm. The examined esophagus was normal. Biopsies were taken with a cold forceps for histology. Assessment & Plan (07/09/2021 6:44 PM CDT): Patient has been on both Pantoprazole and amitriptyline for her reflux. She states that it has been helping. She is requesting a referral to GI. Acquired hypothyroidism 07/06/2021 Assessment & Plan (05/24/2025 12:27 PM CDT): - chronic, well controlled - currently on Levothyroixine 50 mcg daily - most recent TSH Shown below The current medical regimen is effective; continue present plan and medications. Lab Results Component Value Date TSH 3.16 01/14/2025 TSH 2.95 12/23/2023 TSH 4.17 08/14/2023 Assessment & Plan (01/25/2025 12:06 PM CDT): - chronic, well controlled - currently on Levothyroixine 50 mcg daily - most recent TSH Shown below The current medical regimen is effective; continue present plan and medications. Lab Results Component Value Date TSH 3.16 01/14/2025 TSH 2.95 12/23/2023 TSH 4.17 08/14/2023 Assessment & Plan (08/12/2024 10:18 AM CDT): - chronic, well controlled - currently on Levothyroixine 50 mcg daily - most recent TSH Shown below - continued current management Lab Results Component Value Date TSH 2.95 12/23/2023 TSH 4.17 08/14/2023 TSH 0.10 (L) 05/10/2023 Assessment & Plan (08/06/2024 9:49 AM CDT): - chronic, well controlled - currently on Levothyroixine 50 mcg daily - most recent TSH Shown below - continued current management Lab Results Component Value Date TSH 2.95 12/23/2023 TSH 4.17 08/14/2023 TSH 0.10 (L) 05/10/2023 Assessment & Plan (01/17/2024 5:46 AM CDT): - chronic, well controlled - currently on Levothyroixine 50 mcg daily - most recent TSH Shown below - continued current management Lab Results Component Value Date TSH 2.95 12/23/2023 TSH 4.17 08/14/2023 TSH 0.10 (L) 05/10/2023 Assessment & Plan (02/05/2024 5:14 PM CDT): - chronic, well controlled - currently on Levothyroixine 50 mcg daily - most recent TSH Shown below - do not think it can be cause of fatigue given normal findings - continued current management Lab Results Component Value Date TSH 2.95 12/23/2023 TSH 4.17 08/14/2023 TSH 0.10 (L) 05/10/2023 Assessment & Plan (10/10/2023 1:41 PM SILO WORKER): Pcp is following Assessment & Plan (08/16/2023 10:19 AM CDT): - chronic, well controlled - currently on Levothyroixine 50 mcg daily - most recent TSH Shown below - continued current management Lab Results Component Value Date TSH 4.17 08/14/2023 TSH 0.10 (L) 05/10/2023 TSH <0.02 (L) 03/12/2023 Assessment & Plan (05/15/2023 1:32 PM CDT): - chronic, improved but not at goal - was on Levothyroxine 88 mcg daily until she was increased to 100 mcg daily by her OBGYN during , she has since had lab work that showed low TSH and was told to cut it by half by her OBGYN provider so taking 50 mcg daily at this time - most recent TSH Shown below - continued current management Lab Results Component Value Date TSH 0.10 (L) 05/10/2023 TSH <0.02 (L) 03/12/2023 TSH 1.89 11/06/2022 Assessment & Plan (04/21/2023 5:47 PM CDT): - chronic, improved but not at goal - was on Levothyroxine 88 mcg daily until she was increased to 100 mcg daily by her OBGYN during , she has since had lab work that showed low TSH and was told to cut it by half by her OBGYN provider so taking 50 mcg daily at this time - most recent TSH Shown below - recheck TSH in 4-6 weeks, order placed Lab Results Component Value Date TSH <0.02 (L) 03/12/2023 TSH 1.89 11/06/2022 TSH 3.29 07/24/2022 Assessment & Plan (03/12/2023 2:43 PM CDT): To tsh Assessment & Plan (02/20/2023 12:44 PM CDT): She needs a refill Will plan to retest at her 6 week pp visit Assessment & Plan (07/03/2022 12:47 PM CDT): - chronic, improved but not at goal - currently on Levothyroxine 75 mcg up from 50 mcg daily which was increased about 6 weeks ago --> increase to 88 mcg daily, script sent in - most recent TSH Shown below - recheck TSH in 4-6 weeks, order placed Lab Results Component Value Date TSH 5.68 (H) 06/26/2022 TSH 16.43 (H) 05/15/2022 TSH 0.03 (L) 02/20/2022 Assessment & Plan (06/26/2022 10:53 AM CDT): To tsh Assessment & Plan (04/30/2022 3:27 PM CDT): - chronic, not at goal - currently on Levothyroxine 50 mcg daily - most recent TSH Shown below - recheck and if still low TSH need modification of dosage of medication Lab Results Component Value Date TSH 0.03 (L) 02/20/2022 Assessment & Plan (01/30/2022 4:39 PM CDT): Labs ordered, will follow. Continue current medication. Assessment & Plan (07/09/2021 6:46 PM CDT): Stable. Cont. Current meds. Attention deficit hyperactiv ity disorder (ADHD), predominantly inattentive type 10/16/2019 Assessment & Plan (10/17/2025 6:40 PM SILO WORKER): Attention-deficit hyperactivity disorder, predominantly inattentive type ADHD symptoms have worsened since discontinuation of Ritalin and Strattera. Strattera was not tolerated due to gastrointestinal side effects. She is interested in resuming Ritalin if cardiac evaluation is favorable. Qelbree is considered as an alternative non-stimulant option. - Prescribed Qelbree, starting with two capsules daily, with the option to titrate up as needed. - Await results of the event monitor to assess cardiac safety before considering resumption of Ritalin. - Scheduled follow-up in one month to evaluate the effectiveness of Qelbree, with the option for a virtual visit. - she was diagnosed with it in 2019 - symptoms were forgetfulness, inability with tasks, lack of focus - she has multiple cousins with ADHD - she has tried extended release Adderall but affected her sleep in the past, tried Vyvance as well in the past and stated if affected her thinking and made her angry - only took it for 1-2 days Strattera was not tolerated due to gastrointestinal side effects Orders: viloxazine 100 mg capsule,extended release 24hr; Take 2 capsules by mouth daily for 15 days, THEN 4 capsules daily for 15 days. Assessment & Plan (08/25/2025 12:23 PM CDT): - chronic, controlled with medication - she was diagnosed with it in 2019 - symptoms were forgetfulness, inability with tasks, lack of focus - she has multiple cousins with ADHD - she has tried extended release Adderall but affected her sleep in the past, tried Vyvance as well in the past and stated if affected her thinking and made her angry - only took it for 1-2 days - currently on Ritalin 10 mg daily Current use of Ritalin is limited due to heart palpitations. Discussed transition to non-stimulant medication (Strattera) to avoid exacerbating heart symptoms. Strattera is expected to take effect within a week and can be stopped without tapering if not tolerated. Common side effects are minimal, including dry mouth and headache. Discussed that non-stimulant options are limited, with only two common choices available. - Prescribe Strattera 40 mg daily for five days, then increase to 80 mg daily. - Instruct to discontinue Ritalin while taking Strattera. - Monitor response to Strattera over two to three weeks and report effectiveness. Orders: atomoxetine (STRATTERA) 40 mg capsule; Take 1 capsule (40 mg total) by mouth daily for 5 days, THEN 2 capsules (80 mg total) daily for 25 days. Assessment & Plan (07/01/2025 11:43 PM CDT): - chronic, controlled with medication - she was diagnosed with it in 2019 - symptoms were forgetfulness, inability with tasks, lack of focus - she has multiple cousins with ADHD - she has tried extended release Adderall but affected her sleep in the past, tried Vyvance as well in the past and stated if affected her thinking and made her angry - only took it for 1-2 days - currently on Ritalin 10 mg daily Attention-deficit hyperactivity disorder, predominantly inattentive type Currently managed with Ritalin 10 mg daily. Discussed potential side effects of stimulant medications, including palpitations and elevated heart rate. Consideration of non-stimulant ADHD medications if palpitations persist after stopping Ritalin. Non-stimulant medications are available but are not as effective as stimulant medications, which are first-line treatment. - Discontinue Ritalin for two weeks to assess impact on palpitations. - Consider non-stimulant ADHD medications if symptoms persist after Ritalin discontinuation. Assessment & Plan (05/24/2025 12:37 PM CDT): - chronic, improved but not at goal - she was diagnosed with it in 2019 - symptoms were forgetfulness, inability with tasks, lack of focus - she has multiple cousins with ADHD - she has tried extended release Adderall but affected her sleep in the past, tried Vyvance as well in the past and stated if affected her thinking and made her angry - only took it for 1-2 days - currently on Ritalin 10 mg daily --< but wearing off quickly, add on Ritalin 5 mg in pm/afternoon Assessment & Plan (01/27/2025 6:01 AM CDT): - chronic,not at goal - she was diagnosed with it in 2019 - symptoms were forgetfulness, inability with tasks, lack of focus - she has multiple cousins with ADHD - she has tried extended release Adderall but affected her sleep in the past, tried Vyvance as well in the past and stated if affected her thinking and made her angry - only took it for 1-2 days - currently on Ritalin 10 mg daily which she takes PRN, refill provided and will try to be more consistent Assessment & Plan (08/12/2024 10:10 AM CDT): - chronic, well controlled - she was diagnosed with it in 2019 - symptoms were forgetfulness, inability with tasks, lack of focus - she has multiple cousins with ADHD - she has tried extended release Adderall but affected her sleep, tried Vyvance as well in the past and stated if affected her thinking and made her angry - only took it for 1-2 days - currently on Ritalin 10 mg daily which she takes PRN - continue current management Assessment & Plan (08/06/2024 9:49 AM CDT): - chronic, well controlled - she was diagnosed with it in 2019 - symptoms were forgetfulness, inability with tasks, lack of focus - she has multiple cousins with ADHD - she has tried extended release Adderall but affected her sleep, tried Vyvance as well in the past and stated if affected her thinking and made her angry - only took it for 1-2 days - currently on Ritalin 10 mg daily (it does dorantes of quickly) - continue current management Assessment & Plan (04/13/2024 8:33 AM CDT): - chronic, well controlled - she was diagnosed with it in 2019 - symptoms were forgetfulness, inability with tasks, lack of focus - she has multiple cousins with ADHD - she has tried extended release Adderall but affected her sleep, tried Vyvance as well in the past and stated if affected her thinking and made her angry - only took it for 1-2 days - currently on Ritalin 10 mg daily (it does dorantes of quickly) - continue current management Assessment & Plan (01/17/2024 5:46 AM CDT): - chronic, well controlled - she was diagnosed with it in 2018 - symptoms were forgetfulness, inability with tasks, lack of focus - she has multiple cousins with ADHD - currently on Ritalin 10 mg daily - continue current management Assessment & Plan (02/05/2024 5:22 PM CDT): - chronic, well controlled but not at goal - she was diagnosed with it in 2019 - symptoms were forgetfulness, inability with tasks, lack of focus - she has multiple cousins with ADHD - in past has been on extended release Adderall - currently on Ritalin 10 mg daily --> can try BID RItalin for short term and see improvement or can switch her to a long acting medication, seh will try taking Ritalin BID and let me know first - continue current management with change made above Assessment & Plan (09/16/2023 2:16 PM SILO WORKER): - chronic, well controlled - she was diagnosed with it in 2019 - symptoms were forgetfulness, inability with tasks, lack of focus - she has multiple cousins with ADHD - currently on Ritalin 10 mg daily, refill provided - continue current management Assessment & Plan (08/16/2023 10:11 AM CDT): - chronic, well controlled - she was diagnosed with it in 2019 - symptoms were forgetfulness, inability with tasks, lack of focus - she has multiple cousins with ADHD - currently on Ritalin 10 mg daily - continue current management Assessment & Plan (05/14/2023 2:04 PM CDT): - chronic, well controlled - she was diagnosed with it in 2019 - symptoms were forgetfulness, inability with tasks, lack of focus - she has multiple cousins with ADHD - currently on Ritalin 10 mg daily, refill provided - continue current management Assessment & Plan (07/03/2022 12:48 PM CDT): - chronic, not well controlled - stopped Ritalin 10 mg once daily- since she got and states she was told no good alternative - she was diagnosed with it in 2019 - symptoms were forgetfulness, inability with tasks, lack of focus - she has multiple cousins with ADHD - 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 her medication, provided that during office visit Assessment & Plan (06/26/2022 3:30 PM CDT): She is off her meds Not happy that there is not an alternative Assessment & Plan (04/30/2022 3:27 PM CDT): - chronic, stable - she is currently on Ritalin 10 mg once daily- but only takes it once a week, can get headaches so only takes it on specific days only and not daily - she was diagnosed with it in 2019 - symptoms were forgetfulness, inability with tasks, lack of focus - she has multiple cousins with ADHD - continue with current management Assessment & Plan (10/26/2021 1:34 PM SILO WORKER): Prescription renewed at Ritalin 10 mg once daily rather than b.i.d.. HSV-1 (herpes simplex virus 1) infection 015 Assessment & Plan (06/26/2022 3:31 PM CDT): We discussed taking the valtrex 500 bid x 3 days when she feels a sore coming on If she continues to have outbreaks, may be a candidate for daily med Never had genital issues Assessment & Plan (04/30/2022 2:34 PM CDT): - chronic, intermittent - she used Valtrex 100mg BID PRN only - continue with current management Resolved Problems Problem Noted Date Diagnosed Date Resolved Date Abdominal pain 07/22/2024 10/06/2025 Viral gastroenteritis 01/31/20242023 Volume depletion 01/31/2024 08/12/2024 SIRS (systemic inflammatory response syndrome) 01/31/2024 08/06/2024 care and examination 02/20/2023 08/16/2023 Assessment & Plan (03/12/2023 2:44 PM CDT): Doing well Assessment & Plan (02/20/2023 12:48 PM CDT): Doing better rto for 6 week appt To continue to follow with To call if she thinks mood regressess Vaginal discharge 02/20/2023 03/12/2023 Assessment & Plan (02/20/2023 12:51 PM CDT): To get more air to the vagina Nystatin bid Use reviewed To sitz baths or frequent annelise bottle use with 39 completed weeks gestation 01/29/2023 02/20/2023 35 weeks gestation of 01/01/2023 02/20/2023 Low-lying placenta 07/27/2022 Overview (07/27/2022): 07/27/22- will reevaluated at her anatomy scan. Assessment & Plan (01/22/2023 8:10 PM CDT): resolved Supervision of normal 06/26/2022 02/20/2023 Overview (08/01/2022): 07/16/22- carrier and fragile x screening is negative. 07/27/22- cervical length is wnl. 08/01/22- cell free dna is negative. AMA (advanced maternal age) primigravida 35+, first trimester 06/26/2022 02/20/2023 Overview (06/26/2022): Discussed genetic testing. She would like to do False positives and negatives discussed. Assessment & Plan (06/26/2022 3:31 PM CDT): Discussed genetic testing. She would like to do False positives and negatives discussed. History of cholecystectomy 05/22/2022 0 06/26/2022 Hyperplastic polyp of large intestine 05/22/2022 01/22/2023 Anemia of unknown etiology 05/15/2022 0 05/22/2022 S/P cholecystectomy 04/30/2022 05/22/20 COVID-19 03/19/2022 04/30/2022 Overview (03/19/2022): Home positive test 03/17/2022. Insomnia 01/30/2022 05/14/2023 Assessment & Plan (04/30/2022 3:25 PM CDT): - follows with sleep medicine - has known restless legs syndrome and periodic limb movement disorder Assessment & Plan (01/30/2022 4:41 PM CDT): Patient referred to Neurology/Sleep Medicine for further evaluation management. Discoloration of skin of face 10/26/2021 08/16/2023 Assessment & Plan (10/26/2021 1:35 PM SILO WORKER): Refer to dermatology for further evaluation and management. S/P gastric sleeve procedure 08/29/2021 03/27/2023 Assessment & Plan (06/26/2022 3:22 PM CDT): She has not been taking her bariatric vitamins She will restart at the recommended dose Will see what routine labs show She will need Iron, b12, folate, vit d, ferritin and calcium followed. Assessment & Plan (04/30/2022 2:47 PM CDT): - s/p gastric sleeve in 2016 - highest was 285, after surgery lowest was 201 - she is currently on 260 s. - she has gained a lot of the weight back - gained back 40 lbs since GERD History of repair of hiatal hernia 08/29/2021 01/22/2023 Passage of loose stools 08/29/202101/02 Well woman exam with routine gynecological exam 08/09/2021 01/30/2022 Assessment & Plan (08/09/2021 5:29 PM CDT): Pap done. RTO 12m. I will send the results to the portal. If she has not heard in a week, to call the office. She has a h/o abnl pap, but has been released to yearly testing. Diarrhea 07/09/2021 04/30/2022 Assessment & Plan (09/21/2021 5:23 AM SILO WORKER): She is still seeing her GI and has her stool to drop off at the lab. She is waiting for an appt with her bariatric surgeon to talk about a revision. Assessment & Plan (07/09/2021 6:46 PM CDT): Patient reports that this is chronic and would like to see GI. Referral given. Calculus of gallbladder with out cholecystitis without obstruction 10/24/2018 06/26/2022 Anxiety 01/14/2017 03/27/2023 PSC (posterior subcapsular c ataract), bilateral 10/17/2015 01/22/2023 Encounters Date Type Department Care Team Description 10/17/2025 Telephone [facility] Primary Care at [address] [phone] Suzanne Scott MD 10/06/2025 8:30 AM SILO WORKER Office Visit [facility] Primary Care at [address] [phone] Suzanne Scott MD Attention deficit hyperactivity disorder (ADHD), predominantly inattentive type (Primary Dx); Heart palpitations; Need for vaccination; Morbid obesity with BMI of 45.0-49.9, adult ([facility]) 09/23/2025 2:18 PM SILO WORKER - 09/23/2025 11:59 PM SILO WORKER Hospital Encounter [facility] [address] [place] [address] Heart palpitations Discharge Disposition: Discharge to home or self care 08/25/2025 9:00 AM CDT Office Visit [facility] Primary Care at [address] [phone] Suzanne Scott MD Attention deficit hyperactivity disorder (ADHD), predominantly inattentive type (Primary Dx); Heart palpitations; Morbid obesity with BMI of 45.0-49.9, adult (HCC); Generalized anxiety disorder 08/19/2025 12:41 PM CDT - 08/19/2025 11:59 PM CDT Hospital Encounter [facility] [address] [place] [id number] Heart palpitations Discharge Disposition: Discharge to home or self care 07/30/2025 Orders Only [facility] Primary Care at [address] [phone] Suzanne Scott MD Heart palpitations (Primary Dx) from Last 3 Months Immunizations Immunization Administration Dates Next Due DTaP 02/14/1993, 9,07/25/1988,04/19,02/14/1988 HPV, Unspecified 11/07/2007,06/16/2007, 7 Hep B Vaccine 02/09/2002,09/01/2001,06/12/2001 Hib (PRP-OMP) 05/14/1990 IPV 02/14/1993, 9,07/25/1988,04/19,02/14/1988 Influenza, Quadrivalent, [place] Culture-based MDCK, Preservative Free, Antibiotic Free, Intramuscular 09/21/2021 Influenza, Quadrivalent, Spl it, Preservative Free, Intramuscular 09/05/2022 Influenza, Trivalent, Preser vative Free, Intramuscular 10/06/2025,08/12/2024 Influenza, Unspecified 08/25/2025(Deferr ed: Patient Refused),06/30/2025(Deferred: Patient Refused),11/04/2024(Deferred: Patient Refused),08/12/2024(Deferred: Patient Refused),08/06/2024(Deferred: Patient Refused),12/24/2023(Deferred: Patient Refused) MMR 02/14/1993,06/05/1989 PPD TEST 09/21/2021 TD Preservative Free 09/08/2003 Td, Not Adsorbed 09/08/2003 Tdap 11/19/2022,09/21/2021 Surgical History Surgery Date Site/Laterality Comments HERNIA REPAIR 11/04/2018 - 11/03/2019 CHOLECYSTECTOMY CATARACT EXTRACTION 11/04/2015 - 11/03/2016 CATARACT EXTRACTION 11/04/2017 - 11/03/2018 BARIATRIC SURGERY Medical History Medical History Date Comments GERD (gastroesophageal reflux disease) Nerves hypersensitive acid over production Posterior subcapsular age-re lated cataract of both eyes HSV-1 (herpes simplex virus 1) infection Obesity Post-operative state Anxiety Bariatric surgery status Calculus of gallbladder and bile duct, no cholecystitis, w/obstruction ADHD (attention deficit hype ractivity disorder) Hypothyroidism Calculus of gallbladder with out cholecystitis without obstruction 10/24/2018 History of cholecystectomy 05/22/2022 PSC (posterior subcapsular c ataract), bilateral 10/17/2015 S/P gastric sleeve procedure 08/29/2021 Gastric reflux Hiatal hernia Peptic ulceration Anemia 01/30/22 Family History Medical History Relation Name Comments Cataracts Brother 1 Mental illness Brother 2 DC Gout Father D Hypertension Father D Kidney disease Father D Mental illness Father D Cancer Father's Brother D Prostate cancer Father's Brother D Alzheimer's disease Maternal Grandfather H Cancer Maternal Grandmother J Alcohol abuse Mother R Bipolar disorder Mother R Mental illness Mother R Cancer Mother's Brother T Prostate cancer Mother's Brother T Ovarian cancer Paternal Grandmother Relation Name Status Comments Brother 1 Alive Brother 2 DC Alive Father D Alive Father's Brother D Maternal Grandfather H Alive Maternal Grandmother J Alive Mother R Alive Mother's Brother T Other Other no colon, breas t cancer. PGM ovarian cancer age 60s. No genetic testing. no change cmt 10/10/23 Paternal Grandmother Social History Tobacco Use Types Packs/Day Years Used Date Smoking Tobacco: Never Smokeless Tobacco: Never Tobacco Cessation:Counseling Given: Yes Humiliation, Afraid, Rape, and Kick questionnair e Answer Date Recorded Within the last year, have y ou been afraid of your partner or ex-partner? No 10/10/2023 Within the last year, have y ou been humiliated or emotionally abused in other ways by your partner or ex-partner? No Within the last year, have y ou been kicked, hit, slapped, or otherwise physically hurt by your partner or ex-partner? No 10/10/2023 Within the last year, have y ou been raped or forced to have any kind of sexual activity by your partner or ex-partner? No 10/10/2023 Social Connection and Isolation Panel Answer Date Recorded In a typical week, how many times do you talk on the phone with family, friends, or neighbors? More than three times a week 01/29/2023 How often do you get togethe r with friends or relatives? More than three times a week 01/29/2023 How often do you attend [facility] or synagogue services? More than 4 times per year 01/29/2023 Do you belong to any clubs o r organizations such as quaker groups, unions, fraternal or athletic groups, or school groups? Yes 01/29/2023 How often do you attend meet ings of the clubs or organizations you belong to? More than 4 times per year 01/29/2023 Are you , , di vorced, , never , or living with a partner? 01/29/2023 AUDIT-C Answer Date Recorded Q1: How often do you have a drink containing alc ohol? Monthly or less 04/26/2025 Q2: How many drinks containi ng alcohol do you have on a typical day when you are drinking? 1 or 2 04/26/2025 Q3: How often do you have si x or more drinks on one occasion? Never 04/26/2025 Overall Financial Resource Strain (CARDIA) Answe r Date Recorded How hard is it for you to pa y for the very basics like food, housing, medical care, and heating? Not hard at all 01/29/2023 PHQ-2 Answer Date Recorded PHQ-2 Total Score (If total score is 3 or more points, staff should administer the PHQ-9) 0 10/06/2025 Hunger Vital Sign Answer Date Recorded Within the past 12 months, y ou worried that your food would run out before you got the money to buy more. Never true 01/30/20 23 Within the past 12 months, t he food you bought just didn't last and you didn't have money to get more. Never true 01/29/2023 PRAPARE - Transportation Answer Date Re corded In the past 12 months, has l ack of transportation kept you from medical appointments or from getting medications? No 01/03 In the past 12 months, has l ack of transportation kept you from meetings, work, or from getting things needed for daily living? No 01/29/2023 Housing Stability Vital Sign Answer Colt e Recorded In the last 12 months, was t here a time when you were not able to pay the mortgage or rent on time? No 01/29/2023 In the last 12 months, how many places have you lived? 1 01/29/2023 In the last 12 months, was t here a time when you did not have a steady place to sleep or slept in a fci (including now)? No 01/29/2023 [place] Depression Scale Answer Date Recorded [place] Depression Scale Total 18 02/14/2023 The thought of harming myself has occurred to me . Never 02/14/2023 Personal Safety Answer Date Recorded Have you ever been in or are you currently in a harmful physical or emotional relationship or is someone making you feel afraid or unsafe? 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 [employer] Not on file Not on file Not on file Obstetrics History Para Term AB IAB SAB Ectopic Multiple Livin g Live Births 2 1 1 1 1 0 1 1 Date Outcome GA Total Labor Labor/2nd/3rd Weight Sex Type Anes PTL Digna A1 A5 Name Clin SAB 2022 Term 39w 6d 6h 42m 3h 11m/3h 28m/0h 03m 3.195 kg (7 lb 0.7 oz) M Vag-S pont Epidur al N Livin g 9 9 WINTE RS,REJI EVARISTO RHETT Kellie , Andre oh MD Complications:Rupture of Mem branes > 18 hours Delivery Location:This Facil ity ([facility]) Last Filed Vital Signs Vital Sign Reading Time Taken Comments Blood Pressure 126/74 10/06/2025 8:37 AM SILO WORKER Pulse 78 10/06/2025 8:37 AM SILO WORKER Temperature 36.8 C (98.2 F) 10/06/2025 8:37 AM SILO WORKER Respiratory Rate 16 06/30/2025 9:08 AM CDT Oxygen Saturation 98% 10/06/2025 8:37 AM SILO WORKER Inhaled Oxygen Concentration - - Weight 124.2 kg (273 lb 12.8 oz) 10/06/2025 8:37 AM SILO WORKER Height 160 cm (5' 3) 10/06/2025 8:37 AM SILO WORKER Body Mass Index 48.5 10/06/2025 8:37 AM SILO WORKER Plan of Treatment Health Maintenance Due Date Last Done Comments Covid-19 Vaccine ( season) 2025 08/29/2022, 10/09/2021 Regular Well Visit/Exam 18-64 03/02/2026 03/02/2025, 01/25/2025, 10/10/2023, Additional history exists Depression Screening 10/06/2026 10/06/2025, 08/25/2025, 05/24/2025, Additional history exists Cervical Cancer Screening 03/02/20282024, 10/10/2023, 03/12/2023, Additional history exists DTaP/Tdap/Td Vaccine (8 - Td or Tdap) 11/19/2032 11/19/2022, 09/21/2021, 09/08/2003, Additional history exists Hepatitis B Screening Completed 02/09/2002 , 09/01/2001, 06/12/2001 HPV Vaccines Completed 11/07/2007, 06/04, 04/07/2007 Hepatitis C Screening Completed 06/26/2022, 021 Influenza Vaccine Completed 10/06/2025, , 09/05/2022, Additional history exists Pneumococcal vaccine <65 Aged Out No longer eligible based on patient's age to complete this topic Varicella Vaccines Discontinued Procedures Procedure Name Priority Date/Time Associated Diagnosis Comments MCT - MOBILE CARDIAC TELEMETRY EVENT MONITOR Routine 09/23/2025 2:25 PM SILO WORKER Heart palpitations ECG 12-LEAD Routine 08/19/2025 12:57 PM CDT Heart palpitations PAP AND HPV, REFLEX TO HPV GENOTYPES Routine 03/02/2025 9:59 AM CDT Well woman exam HEPATITIS C ANTIBODY Routine 06/26/2022 11:56 AM CDT 8 weeks gestation of Encounter for supervision of other normal in first trimester from Last 3 Months or Most Recently Relevant to Health Maintenance Results * [facility] Mobile Cardiac Telemetry Event Monitor (09/23/2025 2:25 PM SILO WORKER) Anatomical Region Laterality Modality Electrocardiogra phy 09/23/2025 2:27 PM SILO WORKER Narrative 10/18/2025 8:12 AM SILO WORKER [address] [address] EVENT MONITOR Patient Name: WALDO ARRIAGA K : 1985 Study Date: 09/23/2025 2:27:22 PM Sex: F Tech: Ref Provider: SUZANNE SCOTT Height(Cm): BSA: Weight(Kg): Order Provider: SUZANNE SCOTT PROCEDURES: Event Report: Event Monitor Report. INDICATIONS: R00.2 Palpitations. FINDINGS: CONCLUSIONS: 1. Predominant rhythm is normal sinus rhythm with a minimum heart rate of 62 beats per minute in sinus and a maximum heart rate of 151 beats per minute also in sinus. Average heart rate of 91 beats per minute. Heart rate was controlled 73% of the time and was rapid 27% of the time. Total monitoring time of 4 days 7 hours 41 minutes. 2. Heart rate and rate variability is appropriate. 3. No prolonged pauses. 4. Rare PACs with only 99 PACs corresponding to less than 1% of total beats. 5. Rare PVCs with only 33 PVCs corresponding to less than 1% of total beats. 6. There were 7 patient activated events with 4 of them associated with rapid/fast heartbeat. All noted to be in sinus rhythm ranging in heart rate from 77-122 beats per minute. Two of the rapid/fast heartbeat episodes were associated with an isolated PAC and a supraventricular couplet. Electronically Signed By: Dr David Corley 10/18/2025 7:07:22 AM SILO WORKER Procedure Note David Corley MD - 10/18/[address] [place] [address] EVENT MONITOR Patient Name: WALDO ARRIAGA K : 1985 Study Date: 09/23/2025 2:27:22 PM Sex: F Tech: Ref Provider: SUZANNE SCOTT Height(Cm): BSA: Weight(Kg): Order Provider: SUZANNE SCOTT PROCEDURES: Event Report: Event Monitor Report. INDICATIONS: R00.2 Palpitations. FINDINGS: CONCLUSIONS: 1. Predominant rhythm is normal sinus rhythm with a minimum heart rate of62 beats per minute in sinus and a maximum heart rate of 151 beats per minute also insinus. Average heart rate of 91 beats per minute. Heart rate was controlled 73% of the time and was rapid 27% of the time. Total monitoring time of 4 days 7 hours 41 minutes. 2. Heart rate and rate variability is appropriate. 3. No prolonged pauses. 4. Rare PACs with only 99 PACs corresponding to less than 1% of totalbeats. 5. Rare PVCs with only 33 PVCs corresponding to less than 1% of totalbeats. 6. There were 7 patient activated events with 4 of them associated withrapid/fast heartbeat. All noted to be in sinus rhythm ranging in heart rate from 77-122 beatsper minute. Two of the rapid/fast heartbeat episodes were associated with an isolated PACand a supraventricular couplet. Electronically Signed By: Dr David Corley 10/18/2025 7:07:22 AM SILO WORKER Suzanne Scott MD [facility] CARDIAC SERVICES PRO CEDURES Final Result * ECG 12 lead (08/19/2025 12:57 PM CDT) 08/19/2025 12:5 5 PM CDT Narrative [facility] - 08/19/2025 2:59 PM CDT Vent Rate: 95 bpm RR Interval: 631 msec WV Interval: 162 msec QRS Duration: 82 msec QT Interval: 317 msec QTC Interval: 369 msec P-R-T [place]: 38 - 26 - 18 degrees IMPRESSION: SINUS RHYTHM WITH MARKED SINUS ARRHYTHMIA POSSIBLE ANTERIOR MYOCARDIAL INFARCTION , PROBABLY OLD [30 ms Q WAVE IN V3/V4, OR R < 0.2 mV IN V4] BORDERLINE ECG Compared to prior EKG heart rate decreased Electronically Signed By: Rommel Emanuel MD [facility] Suzanne Scott MD ECG ORDERABLES Final R esult [facility] * Pap and HPV, reflex to HPV Genotypes (03/02/2025 9:59 AM CDT) Clinical indication Comment [facility] - 01 Comment:NEGATIVE FOR INTRAEP ITHELIAL LESION OR MALIGNANCY. Specimen adequacy: Comment [facility] - 01 Comment: Satisfactory for evaluation. Endocervical and/or squamous metaplastic cells (endocervical component) are present. Clinician provided ICD10 Comment [facility] - 01 Comment:Z01.419 Performed by Comment [facility] - 01 Comment:Yamilka Juarez, Cytolo gist (ASCP) . . [facility] - 01 Note: Comment [facility] - 01 Comment: The Pap smear is a screening test designed to aid in the detection of premalignant and malignant conditions of the uterine cervix. It is not a diagnostic procedure and should not be used as the sole means of detecting cervical cancer. Both false-positive and false-negative reports do occur. Test methodology Comment [facility] - 01 Comment: This liquid based ThinPrep(R) pap test was screened with the use of an image guided system. HPV Aptima Negative Negative [facility] 02 Comment: This nucleic acid amplification test detects fourteen high-risk HPV types (16,18,31,33,35,39,45,51,52,56,58,59,66,68) without differentiation. HPV Genotype Reflex Comment [facility] - 01 Comment:Criteria not met, HP V Genotype not performed. Thin prep-Endocervical 03/02/2025 9:59 AM CDT 03/02/2025 Narrative [facility] - 03/04/2025 2:11 PM CDT Performed at: - [facility] [place] [address] [id number] Deputy Chief Counsel: Jessica Vera MD, Phone: [phone] Performed at: 02 - [address] [id number] Deputy Chief Counsel: Jessica Vera MD, Phone: [phone] Specimen Comment: [id number] Specimen Comment: No. of containers..01 ThinPrep Vial us Rachele Guido NP LAB CYTOLOGY ORDERABLES Fin al Result [facility] - 01 [facility] 02 * Hepatitis C antibody (06/26/2022 11:56 AM CDT) Hep C Ab Nonreactive Nonreactive [facility] ([place]) Comment: Interpretive Data Nonreactive: Antibodies to HCV not detected. Does NOT exclude the possibility of recent exposure to HCV. Equivocal: Equivocal for HCV antibodies. Supplemental molecular testing will be automatically performed to determine infection status in accordance with current CDC screening recommendations. Reactive: Positive for HCV antibodies. This may represent current or past HCV infection. Supplemental molecular testing will be automatically performed to determine current infection status in accordance with current CDC screening recommendations. Interpretive data was last revised on 2020. Testing performed by: [facility], [address] [place] [address]., [id number] Blood 06/26/2022 11:5 6 AM CDT 06/26/2022 2:14 PM CDT us Viji Hopkins MD LAB MICROBI OLOGY - GENERAL ORDERABLES Edited Result - Final [facility] ([place]) [facility] [place] [address] from Last 3 Months or Most Recently Relevant to Health Maintenance Insurance [facility] Advance Directives For more information, please contact: [phone] * Full Code (Latest Code Status on File) Date Activated Date Inactivated Comments 04/26/2025 9:37 AM 04/26/2025 4:34 PM * Full Code Date Activated Date Inactivated Comments 04/26/2025 9:37 AM 04/26/2025 9:37 AM * Full Code Date Activated Date Inactivated Comments 01/31/2024 5:54 AM 02/01/2024 6:11 PM * Full Code Date Activated Date Inactivated Comments 01/30/2023 4:18 AM 02/01/2023 11:27 PM * Full Code Date Activated Date Inactivated Comments 01/29/2023 1:05 AM 01/30/2023 4:18 AM Full CPR in case of cardiopulmonary arrest Care Teams Quality Lead Relationship Specialty Start Date End Date Suzanne Scott MD [address] [place] [address] PCP - General Family Medicine 04/30/22 Zen Pierce MD General Surgery 11/15/21 Marc Zambrano NP [facility] 11/15/21 Viji Hopkins MD [address] [place] [address] Consulting Physician Obstetrics and Gynecology 02/08/23
[2025-10-23 17:41] VITALS: BP 117/53; PULSE 82; RESP 20; TEMP 36.3; O2SAT 100
--- NOTE | 2025-10-23 17:49 | ED.ANIMALBIT ---
HPI - Animal Bite General Chief Complaint: Animal Bite Stated Complaint: Cat Bite/Right Hand Time Seen by Provider: 10/23/25 17:49 Source: patient, RN notes reviewed and old records reviewed Mode of arrival: ambulatory Limitations: no limitations History of Present Illness HPI narrative: 39 year old female [facility] with complaints of sustaining a cat bite from her own cat this morning with puncture carol to prakash aspect of right hand and one to to top of hand near thumb area. Patient reports that she has increased pain and swelling to her right hand this evening. Patient also reports that she has been dealing with sinus drainage and pain and has been taking DayQuil for those symptoms. Patient reports that she is up to date on her tetanus. Patient reports that cat is her pet.She stated that she has some tinfling in her thumb and index finger and some up into the arm to elbow moving all fingers well on own power with finger pink and warm with brisk capillary refill. complaint: animal bite Onset (ago): day(s) (today around 1100) Animal: cat Description of animal: household pet (cat) Severity scale (1-10): 6 Treatments prior to arrival: other (DayQuil) Related Data Home Medications ?Medication ?Instructions ?Recorded ?Confirmed ?Last Taken ?Type amitriptyline 75 mg tablet 75 mg PO HS 08/15/21 10/23/25 Unknown History Held on 10/23/25. Instructions: Patient no longer taking levothyroxine 50 mcg tablet 50 mcg PO DAILY 08/15/21 08/15/21 Unknown History methylphenidate HCl 10 mg tablet 10 mg PO DAILY 08/15/21 08/15/21 Unknown History pantoprazole 40 mg tablet,delayed 40 mg PO HS 08/15/21 08/15/21 Unknown History release (Protonix) valacyclovir 500 mg tablet mg 10/23/25 Unknown History Allergies Allergy/AdvReac Type Severity Reaction Status Date / Time No Known Allergies Allergy Verified 10/23/25 17:49 Review of Systems Review of Systems: CONSTITUTIONAL: Denies fever, chills, or sweats. CARDIOVASCULAR: Denies chest pain, palpitations, or edema. RESPIRATORY: Denies cough or dyspnea.does have sinus congestion GASTROINTESTINAL: Denies abdominal pain, nausea, vomiting SKIN: Reports redness and swelling. Denies purulent drainage, puncture avila to the prakash aspect of right hand and to top of right hand near thumb, no drainage noted MUSCULOSKELETAL: Denies myalgia. NEUROLOGIC: Denies headache, tingling right thumb and index with some up arm to elbow All systems reviewed & are unremarkable except as noted in HPI and below PMFSH Past Medical History Medical History (Updated 10/25/25 @ 14:14 by Yuni Pineda APRN) ADHD (attention deficit hyperactivity disorder) GERD (gastroesophageal reflux disease) Surgical History Surgical History (Updated 10/25/25 @ 14:13 by Yuni Pineda APRN) History of repair of hiatal hernia H/O gastric sleeve Social History Social History (Updated 10/25/25 @ 14:14 by Yuni Pineda APRN) Smoking status: Never smoker Alcohol intake: current Alcohol use details: social Substance use type: does not use Living arrangements: with family Gender identity (if verbalized by the patient): Female Comments At time of signature, agree with nursing past medical, surgical, social and family history. There is no relevant family history pertinent to the presenting complaint Exam Narrative: GENERAL: Well-appearing, well-nourished, and in no acute distress. HEAD: Normocephalic, atraumatic. EYES: PERRLA and EOMI. ENT: Nares clear, clear thick rhinorrhea no epistaxis. Mucous membranes moist.sinus pressure TM's normal throat pink with no swelling or exudates. NECK: Supple.no lymphadenopathy CHEST: Clear to auscultation. No respiratory distress. SAO2 100% on room air HEART: Regular rate and rhythm. No murmur heard. Normal peripheral pulses. ABDOMEN: Soft, nontender, nondistended, normal active bowel sounds. EXTREMITIES: Normal range of motion. No edema. SKIN: Warm, dry. Erythema, induration, tenderness, warmth with 2 small puncture wounds one to plantar aspect of hand and one to dorsal base of thumb without drainge hand is swollen and painful from cat bite. NEURO: No focal deficits. Alert and oriented x3. Course Course Level of Care: Express Care Visit Vital Signs Vital signs: Vital Signs Temperature 36.3 C L 10/23/25 17:41 Pulse Rate 82 10/23/25 17:41 Respiratory Rate 20 10/23/25 17:41 Blood Pressure 117/53 L 10/23/25 17:41 Pulse Oximetry 100 10/23/25 17:41 Oxygen Delivery Room Air 10/23/25 17:41 Temperature 36.3 C L 10/23/25 17:41 Pulse Rate 82 10/23/25 17:41 Respiratory Rate 20 10/23/25 17:41 Blood Pressure 117/53 L 10/23/25 17:41 Pulse Oximetry 100 10/23/25 17:41 Oxygen Delivery Room Air 10/23/25 17:41 reviewed MDM MDM Narrative Medical decision making narrative: Patient presents to clinic with cat bites X2 to righ hand from her pet one to prakash aspect hand and one to dorsal aspect of base of thumb with swelling and pain. Patient also coming of over 10 day history of sinus congestion drainage, headache and sinus pressure. Patient is appropriate for out patient care and follow up. Anticipatory guidance and reasons to seek care in Ed reviewed with patient with understanding voiced. Differential Diagnosis Differential Diagnosis: Differential diagnostic considerations for skin/abscess/foreign body issues include abscess of skin or subcutaneous tissue, viral exanthem, dermatophytosis, urticaria, herpes zoster, allergic reaction to drug, cellulitis, eczema, insect bites, impetigo, contact dermatitis, vasculitis. b Differential diagnostic considerations for upper respiratory infection include upper respiratory infection, croup, otitis media, sinusitis, viral infection, bronchitis, influenza, pharyngitis, strep, uvulitis.? Critical Care Time Critical Care Time Critical Care Time: No Discharge Plan Discharge Clinical Impression: Cat bite Patient Disposition: Home Condition: Stable Instructions: Antibiotic Form, Animal Bite (ED) Additional Instructions: Cleanse right hand with liquid dial soap twice daily and rinse well apply Mupiricin ointment to wounds dressing of choice or leave CUTTING MACHINE OPERATOR watch for increasing infection--redness, swelling, drainage Tylenol or Ibuprofen for any fevers or pain follow up with PCP in 7-10 days for a wound check recheck if develop fever, chills, increasing symptom Go to the ER if your symptoms become worse of if ANY new symptoms develop antibiotic as ordered complete all doses. If your symptoms persist, change or worsen significantly before you can contact your personal physician then please, without delay, go to the emergency department for further evaluation. Follow-up with PCP in 7-10 days or sooner if needed if any concern for increased infection increase pain or wound appearance go directly to the emergency room Patient Language: German Prescriptions: New amoxicillin-pot clavulanate 825125 mg tablet 1 tablet PO Q12H Qty: 20 0RF mupirocin [Centany] 2 % ointment 1 applic topical BID Qty: 22 0RF Rx Instructions: apply to wounds right hand No Action amitriptyline 75 mg Tablet 75 mg PO HS methylphenidate HCl 10 mg Tablet 10 mg PO DAILY levothyroxine 50 mcg Tablet 50 mcg PO DAILY pantoprazole [Protonix] 40 mg Tablet,Delayed Release (Dr/Ec) 40 mg PO HS valacyclovir 500 mg tablet Follow-up/Referrals: Med,Alan Gaytan MD [Primary Care Provider, Unknown] Time of Disposition: 18:10 Quality Carmen Coma Scale Eyes: Open Verbal: Oriented and Alert Motor: Follows Commands Carmen Coma Total Score: 15
== END 2025-10-23 18:12 | disposition home or self-care (01) ==
PROVIDERS: Emergency Provider Registered Nurse; PCP Family Medicine
DX: S61.431A Puncture wound without foreign body of right hand, initial encounter (principal); W55.01XA Bitten by cat, initial encounter; F90.9 Attention-deficit hyperactivity disorder, unspecified type; K21.9 Gastro-esophageal reflux disease without esophagitis; Z98.84 Bariatric surgery status
CPT/HCPCS: 99213; G0463